=== PATIENT | female | born 1975 | race African-American/Black ===

== ENCOUNTER 2017-02-02 09:46 | Observation (INO) | payer SELFPAY ==
[~2017-02-02] VITALS: Ht 170.2 cm; Wt 62.0 kg
[~2017-02-02 09:46] MED LIST: FERR324T4 PO
[2017-02-02 09:50] VITALS: BP 135/90; PULSE 78; RESP 16; TEMP 98.7; O2SAT 96
--- NOTE | 2017-02-02 10:13 | PD ---
HPI Chief Complaint: Seizure Time Seen by Provider: 09:58 Travel History International Travel<30 days: No Contact w/Intl Traveler<30days: No Traveled to known affect area: No History of Present Illness HPI 41yo F with chronic alcohol abuse presents to the ED with episode seizure today. Pt called [facility] initially because she wanted detox from alcohol and had a witnessed generalized tonic clonic seizure that lasted 15 seconds while en route on the ambulance. No head trauma. Pt is still shaking in her hands and diaphoretic. Pt is nauseous, and has epigastric abdominal pain and generalized weakness. Pt is AAOx3 now and has had alcohol withdrawal seizures before. Pt last drank yesterday and usually has 4-5 packs of beer. Denies any chest pain, sob, vomiting, focal weakness or numbness. Denies any drugs. Blood glucose 119. PFSH Past Medical History Arthritis: Yes Autoimmune Disease: No Blood Disorders: No Cancer: No Cardiovascular Problems: No Cerebrovascular Accident: No Diminished Hearing: No Endocrine: No Gastrointestinal Disorders: Yes GERD: Yes Genitourinary: Yes (chronic UTIs) Headaches: Yes Hiatal Hernia: Yes Immune Disorder: Yes (RA from childhood) Implanted Vascular Access Dvce: No Musculoskeletal: Yes (RA--dx'd at age 9 ) Neurologic: Yes (seizures r/t alcohol withdraw 2013, 09/2015) Psychiatric: No Reproductive: No Respiratory: No Migraines: No Seizures: Yes (2012) Sleep Apnea: No Ulcer: No Influenza Vaccination: Yes ?: Not : 3 Para: 3 Tubal Ligation: Yes Past Surgical History Abdominal Surgery: Yes (BARIATRIC 2008) Cardiac Surgery: No Ear Surgery: No Endocrine Surgery: No Eye Surgery: No Gynecologic Surgery: Yes (TUBAL LIGATION) Oral Surgery: No Thoracic Surgery: No Other Surgery: Yes Social History Alcohol Use: Yes (12 BEERS/DAY) Tobacco Use: No Substance Use: No Allergies-Medications (Allergen,Severity, Reaction): Coded Allergies: No Known Allergies (Verified , 02/02/17) Reported Meds & Prescriptions Reported Meds & Active Scripts Active No Active Prescriptions or Reported Medications Review of Systems Except as stated in HPI: all other systems reviewed are Neg Physical Exam Narrative GENERAL: 41yo F in moderate distress. SKIN: Warm and diaphoretic. HEAD: Atraumatic. Normocephalic. EYES: Pupils equal and round at 3mm bilaterally. EOMI. No scleral icterus. No injection or drainage. ENT: No nasal bleeding or discharge. Mucous membranes pink and moist. NECK: Trachea midline. No JVD. CARDIOVASCULAR: Regular rate and rhythm. No murmur appreciated. RESPIRATORY: No accessory muscle use. Clear to auscultation. Breath sounds equal bilaterally. GASTROINTESTINAL: Abdomen soft, +TTP epigastric region. No rebound tenderness or guarding. MUSCULOSKELETAL: No obvious deformities. No clubbing. No cyanosis. No edema. NEUROLOGICAL: Tremors in bilateral upper extremities and tongue fasciculation. PSYCHIATRIC: Appropriate mood and affect; insight and judgment normal. Data Data Last Documented VS Vital Signs Date Time Temp Pulse Resp B/P Pulse Ox O2 Delivery O2 Flow Rate FiO2 02/02/17 09:50 98.7 78 16 135/90 96 Orders Complete Blood Count With Diff (02/02/17 10:06) Comprehensive Metabolic Panel (02/02/17 10:06) Lipase (02/02/17 10:06) Sodium Chlor 0.9% 1000 Ml Inj (Ns 1000 M (02/02/17 10:15) Magnesium (Mg) (02/02/17 10:06) Lorazepam Inj (Ativan Inj) (02/02/17 10:15) Thiamine Inj (Thiamine Inj) (02/02/17 10:15) Ondansetron Inj (Zofran Inj) (02/02/17 10:15) Electrocardiogram (02/02/17 ) Enforcement Safety Officer / Telemetry OLIVIA.Q8H (02/02/17 10:13) Alcohol (Ethanol) (02/02/17 10:00) Pantoprazole Inj (Protonix Inj) (02/02/17 11:30) Labs Laboratory Tests Test 02/02/17 10:00 White Blood Count 5.0 TH/MM3 Red Blood Count 4.37 MIL/MM3 Hemoglobin 14.5 GM/DL Hematocrit 42.1 % Mean Corpuscular Volume 96.5 FL Mean Corpuscular Hemoglobin 33.1 PG Mean Corpuscular Hemoglobin 34.3 % Concent Red Cell Distribution Width 15.2 % Platelet Count 80 TH/MM3 Mean Platelet Volume 9.4 FL Neutrophils (%) (Auto) 65.6 % Lymphocytes (%) (Auto) 24.8 % Monocytes (%) (Auto) 8.8 % Eosinophils (%) (Auto) 0.4 % Basophils (%) (Auto) 0.4 % Neutrophils # (Auto) 3.2 TH/MM3 Lymphocytes # (Auto) 1.2 TH/MM3 Monocytes # (Auto) 0.4 TH/MM3 Eosinophils # (Auto) 0.0 TH/MM3 Basophils # (Auto) 0.0 TH/MM3 CBC Comment AUTO DIFF Differential Comment AUTO DIFF CONFIRMED Platelet Estimate LOW Platelet Morphology Comment NORMAL Target Cells 1+ Sodium Level 135 MEQ/L Potassium Level 3.8 MEQ/L Chloride Level 98 MEQ/L Carbon Dioxide Level 21.7 MEQ/L Anion Gap 15 MEQ/L Blood Urea Nitrogen 10 MG/DL Creatinine 1.00 MG/DL Estimat Glomerular Filtration 74 ML/MIN Rate Random Glucose 132 MG/DL Calcium Level 9.0 MG/DL Magnesium Level 2.0 MG/DL Total Bilirubin 0.8 MG/DL Aspartate Amino Transf 124 U/L (AST/SGOT) Alanine Aminotransferase 78 U/L (ALT/SGPT) Alkaline Phosphatase 116 U/L Total Protein 8.0 GM/DL Albumin 3.3 GM/DL Lipase 268 U/L Ethyl Alcohol Level LESS THAN 3 MG/DL [facility] Medical Decision Making Medical Screen Exam Complete: Yes Emergency Medical Condition: Yes Interpretation(s) EKG: NSR 69bpm. Biphasic T waves V2, V3. QTc 444ms. Differential Diagnosis Alcohol withdrawal seizure vs. electrolyte abnormality vs. pancreatitis vs. alcoholic gastritis Narrative Course 41yo F with chronic alcohol abuse here with what sounds like alcohol withdrawal seizure. No focal neurologic deficits. Pt has had documented alcohol withdrawal seizure in 2015 from our records. No signs of trauma except that she may have bit her tongue. No tongue laceration or active bleeding but there is redness left tongue. Pt is AAOx3 but tremulous so ativan 2mg IV given. VS stable. Labs reviewed, no leukocytosis. Glucose 132. Lipase 268. Blood alcohol negative. Elevated liver enzyme which is unchanged from baseline. Magnesium normal. Pt given NS IVF, thiamine and placed on psychological operations officer. Pt given protonix for epigastric abdominal pain that is likely gastritis. Pt reevaluated at bedside and is less tremulous. Pt will be admitted for observation for alcohol withdrawal seizure. Discussed with Dr. Diaz and accepted to his service. Diagnosis Primary Impression: Alcohol withdrawal seizure Qualified Code: F10.230 - Alcohol withdrawal seizure, uncomplicated Admitting Information Admitting Physician Requests: Observation Scripts No Active Prescriptions or Reported Meds Rose,Nicolasa DO Feb 02, 2017 10:13
[2017-02-02] MEDS ORDERED: THIAMINE INJ 100 MG in SODIUM CHLORIDE 0.9% INJ 100 ML IV ONE (10:15)
[2017-02-02] MEDS ORDERED: ONDANSETRON HCL 4 MG/2 ML VIAL IV PUSH ONE (10:15)
[2017-02-02] MEDS ORDERED: SODIUM CHLOR 0.9% 1000 ML INJ 1,000 ML IV ONE (10:15)
[2017-02-02] MEDS ORDERED: LORazepam 2 MG/ML VIAL IV PUSH ONE (10:15)
[2017-02-02 10:31] LABS: AUTOMATED NEUTROPHIL # 3.2 TH/MM3 (1.8-7.7); BASOPHIL % 0.4 % (0.0-2.0); EOSINOPHIL % 0.4 % (0.0-4.0); HEMATOCRIT 42.1 % (35.0-46.0); LYMPH % 24.8 % (9.0-44.0); LYMPHOCYTE # 1.2 TH/MM3 (1.0-4.8); MEAN CELL VOLUME 96.5 FL (80.0-100.0); MEAN CORPUSCULAR HEMOGLOBIN 33.1 PG (27.0-34.0); MEAN CORPUSCULAR HGB CONC 34.3 % (32.0-36.0); MONO % 8.8 % (0.0-8.0); NEUT % 65.6 % (16.0-70.0); PLATELET COUNT 80 TH/MM3 (150-450); RED BLOOD COUNT 4.37 MIL/MM3 (4.00-5.30); RED CELL DISTRIBUTION WIDTH 15.2 % (11.6-17.2)
[2017-02-02 10:33] LABS: HEMO FLAGS AUTO DIFF
[2017-02-02 10:50] LABS: ANION GAP 15 MEQ/L (5-15); AST (GOT) 124 U/L (15-37); BICARBONATE 21.7 MEQ/L (21.0-32.0); BLOOD UREA NITROGEN 10 MG/DL (7-18); CHLORIDE 98 MEQ/L (98-107); GLOMERULAR FILTRATION RATE 74 ML/MIN (>89); POTASSIUM 3.8 MEQ/L (3.5-5.1); SODIUM (NA) 135 MEQ/L (136-145)
[2017-02-02 10:53] LABS: ALKALINE PHOSPHATASE 116 U/L (45-117); ALT (GPT) 78 U/L (10-53); TOTAL BILIRUBIN ADULT 0.8 MG/DL (0.2-1.0)
[2017-02-02] MEDS ORDERED: PANTOPRAZOLE SODIUM 40 MG VIAL IV PUSH ONE (11:30)
[2017-02-02 11:33] LABS: PLATELET ESTIMATE SMEAR LOW (NORMAL); PLATELET MORPHOLOGY NORMAL (NORMAL); SCAN/DIFF AUTO DIFF CONFIRMED; TARGET CELLS 1+ (NORMAL)
--- NOTE | 2017-02-02 11:35 | HHI.HP ---
[facility] Primary Care Physician Admission Diagnosis Diagnoses: (1) Alcohol withdrawal seizure (2) Alcohol abuse (3) GERD (gastroesophageal reflux disease) (4) Microcytic anemia (5) IFG (impaired fasting glucose) Chief Complaint: Seizure withdrawal Travel History International Travel<30 Days: No Contact w/Intl Traveler <30 Da: No Traveled to Known Affected Are: No History of Present Illness 41-year-old female with a PMH of Alcohol Abuse and Alcohol Related Seizure who was brought into the ER by EMS 2/2 seizure and alcohol withdrawal type symptoms. She Drinks approx 4-5 beers/day.She states her last drink was yesterday 02/01/17. In the ED Alcohol level was 3. Vitals on arrival On , Temp 98 7, BP 135/90, HR 78, O2 sat 96% on RA. Abnormal labs include sodium 135 and blood glucose 132. During my exam, patient was alert and oriented although tremulous but not in a post ictal state. She denies any GI bleed, shortness of breath or chest pain. Review of Systems Other 12 systems reviewed and are negative except for the one mentioned in history of present illness Past Family Social History Past Medical History Alcohol Abuse and Alcohol Related Seizure Past Surgical History Tubal Ligation, Bariatric Surgery Allergies: Coded Allergies: No Known Allergies (Verified , 02/02/17) Family History No h/o DM or CAD. Social History Drinks 12 beers per day. Negative for tobacco or drugs. Physical Exam Vital Signs Vital Signs Date Time Temp Pulse Resp B/P Pulse Ox O2 Delivery O2 Flow Rate FiO2 02/02/17 09:50 98.7 78 16 135/90 96 Physical Exam GENERAL: This is a well-nourished, well-developed patient, in no apparent distress. SKIN: No rashes, ecchymoses or lesions. Cool and dry. HEAD: Atraumatic. Normocephalic. No temporal or scalp tenderness. EYES: Pupils equal round and reactive. Extraocular motions intact. No scleral icterus. No injection or drainage. ENT: Nose without bleeding, purulent drainage or septal hematoma. Throat without erythema, tonsillar hypertrophy or exudate. Uvula midline. Airway patent. NECK: Trachea midline. No JVD or lymphadenopathy. Supple, nontender, no meningeal signs. CARDIOVASCULAR: Regular rate and rhythm without murmurs, gallops, or rubs. RESPIRATORY: Clear to auscultation. Breath sounds equal bilaterally. No wheezes , rales, or rhonchi. GASTROINTESTINAL: Abdomen soft, non-tender, nondistended. No hepato-splenomegaly , or palpable masses. No guarding. MUSCULOSKELETAL: Extremities without clubbing, cyanosis, or edema. No joint tenderness, effusion, or edema noted. No calf tenderness. Negative Homans sign bilaterally. NEUROLOGICAL: Awake and alert. Cranial nerves II through XII intact. Motor and sensory grossly within normal limits. Five out of 5 muscle strength in all muscle groups. Normal speech. Laboratory Laboratory Tests Test 02/02/17 10:00 White Blood Count 5.0 Red Blood Count 4.37 Hemoglobin 14.5 Hematocrit 42.1 Mean Corpuscular Volume 96.5 Mean Corpuscular Hemoglobin 33.1 Mean Corpuscular Hemoglobin 34.3 Concent Red Cell Distribution Width 15.2 Platelet Count 80 Mean Platelet Volume 9.4 Neutrophils (%) (Auto) 65.6 Lymphocytes (%) (Auto) 24.8 Monocytes (%) (Auto) 8.8 Eosinophils (%) (Auto) 0.4 Basophils (%) (Auto) 0.4 Neutrophils # (Auto) 3.2 Lymphocytes # (Auto) 1.2 Monocytes # (Auto) 0.4 Eosinophils # (Auto) 0.0 Basophils # (Auto) 0.0 CBC Comment AUTO DIFF Differential Comment AUTO DIFF CONFIRMED Platelet Estimate LOW Platelet Morphology Comment NORMAL Target Cells 1+ Sodium Level 135 Potassium Level 3.8 Chloride Level 98 Carbon Dioxide Level 21.7 Anion Gap 15 Blood Urea Nitrogen 10 Creatinine 1.00 Estimat Glomerular Filtration 74 Rate Random Glucose 132 Calcium Level 9.0 Magnesium Level 2.0 Total Bilirubin 0.8 Aspartate Amino Transf 124 (AST/SGOT) Alanine Aminotransferase 78 (ALT/SGPT) Alkaline Phosphatase 116 Total Protein 8.0 Albumin 3.3 Lipase 268 Ethyl Alcohol Level LESS THAN 3 Result Diagram: 02/02/17 1000 02/02/17 1000 Assessment and Plan Problem List: (1) Alcohol withdrawal seizure ICD Code: F10.239 Status: Acute (2) Alcohol abuse ICD Code: F10.10 Status: Chronic (3) Hyponatremia ICD Code: E87.1 Status: Acute (4) IFG (impaired fasting glucose) ICD Code: R73.01 Status: Acute (5) Thrombocytopenia ICD Code: D69.6 Status: Acute (6) GERD (gastroesophageal reflux disease) ICD Code: K21.9 Status: Chronic Assessment and Plan 41-year-old female with 1-Alcohol withdrawal seizure: Alcohol cessation counseling provided, start rally pack, CIWA protocol, Librium when necessary for DTs and place seizure precaution. Will check EEG 2-Hyponatremia:2/2 beer potomania; monitor BMP 3-Thrombocytopenia: Secondary to liver related to alcohol disease, monitor CBC 4-Impaired fasting glucose: Check hemoglobin A1c and treat accordingly 5-GERD: PPI 6-DVT prophylaxis: Bilateral SCDs Code Status Full code Discussed Condition With Patient, ED physician Problem Qualifiers (1) Alcohol withdrawal seizure: Qualified Code: F10.230 - Alcohol withdrawal seizure, uncomplicated Michael Diaz MD Feb 02, 2017 11:35
[2017-02-02] MEDS ORDERED: ONDANSETRON HCL 4 MG/2 ML VIAL IV PRN (12:00)
[2017-02-02] MEDS ORDERED: LORazepam 1 MG TAB PO PRN (12:00)
[2017-02-02] MEDS ORDERED: LORazepam 2 MG TAB PO PRN (12:00)
[2017-02-02] MEDS ORDERED: FLUMAZENIL 0.5 MG/5 ML VIAL IV PUSH PRN (12:00)
[2017-02-02] MEDS ORDERED: LORazepam 2 MG/ML VIAL IV PUSH PRN ×4 (12:00)
[2017-02-02] MEDS ORDERED: cloNIDine HCL 0.1 MG TAB PO PRN (12:00)
[2017-02-02] MEDS ORDERED: SODIUM CHLORIDE 0.9% FLUSH 10 ML FLUSH IV FLUSH PRN (12:00)
[2017-02-02 13:57] VITALS: BP 124/88; PULSE 92; RESP 18; O2SAT 98
[2017-02-02 20:04] VITALS: BP 137/87; PULSE 99; RESP 18; TEMP 97.8; O2SAT 98
--- NOTE | 2017-02-02 20:20 | EKG ---
Date Performed: 02/02/2017 Time Performed: 10:41:54 PTAGE: 41 years EKG: ATRIAL FIBRILLATION BIPHASIC T WAVES, CONSIDER ISCHEMIA ABNORMAL RHYTHM ECG PREVIOUS TRACING : 09/25/2015 17.49 Compared to prior tracing no significant change DOCTOR: Brenden Royal Interpretating Date/Time 02/02/2017 20:19:58
[2017-02-02] MEDS: SODIUM CHLORIDE 0.9% FLUSH 10 ML FLUSH IV FLUSH SCH (23:01)
[2017-02-03 01:23] VITALS: BP 124/76; PULSE 86; RESP 18; TEMP 98.4; O2SAT 97
[2017-02-03 05:00] VITALS: PULSE 84
[2017-02-03 07:29] VITALS: BP 82/62; PULSE 89; RESP 18; TEMP 99.1; O2SAT 97
[2017-02-03 08:00] VITALS: PULSE 80
[2017-02-03] MEDS ORDERED: THIAMINE HCL 100 MG TAB PO SCH (09:00)
[2017-02-03] MEDS ORDERED: MULTIVITAMINS/MINERALS THERAPEUTIC TAB PO SCH (09:00)
[2017-02-03] MEDS ORDERED: PANTOPRAZOLE SOD 40 MG DELAYED RELEASE TAB PO SCH (09:00)
[2017-02-03] MEDS ORDERED: FOLIC ACID 1 MG TAB PO SCH (09:00)
[2017-02-03] MEDS ORDERED: VITA100T2 PO (09:05)
--- NOTE | 2017-02-03 09:08 | HHI.PR ---
Subjective Remarks Follow-up alcohol withdrawal seizure 02/03/17-patient seen and examined, no seizure activity since admission, alert and oriented 3. Objective Vitals Vital Signs Date Time Temp Pulse Resp B/P Pulse Ox O2 Delivery O2 Flow Rate FiO2 02/03/17 07:29 99.1 89 18 82/62 97 02/03/17 05:00 84 02/03/17 01:23 98.4 86 18 124/76 97 02/02/17 20:04 97.8 99 18 137/87 98 02/02/17 13:57 92 18 124/88 98 Room Air 02/02/17 09:50 98.7 78 16 135/90 96 I/O 02/02/17 02/02/17 02/02/17 02/03/17 02/03/17 02/03/17 07:00 15:00 23:00 07:00 15:00 23:00 Intake Total 600 ml Balance 600 ml Intake Oral 600 ml # Voids 2 Result Diagram: 02/02/17 1000 02/02/17 1000 Objective Remarks GENERAL: NAD SKIN: Warm and dry. HEAD: Normocephalic. EYES: No scleral icterus. No injection or drainage. NECK: Supple, trachea midline. No JVD or lymphadenopathy. CARDIOVASCULAR: Regular rate and rhythm without murmurs, gallops, or rubs. RESPIRATORY: Breath sounds equal bilaterally. No accessory muscle use. GASTROINTESTINAL: Abdomen soft, non-tender, nondistended. MUSCULOSKELETAL: No cyanosis, or edema. BACK: Nontender without obvious deformity. No CVA tenderness. A/P Problem List: (1) Alcohol withdrawal seizure ICD Code: F10.239 Status: Acute (2) Alcohol abuse ICD Code: F10.10 Status: Chronic (3) Hyponatremia ICD Code: E87.1 Status: Acute (4) IFG (impaired fasting glucose) ICD Code: R73.01 Status: Acute (5) Thrombocytopenia ICD Code: D69.6 Status: Acute (6) GERD (gastroesophageal reflux disease) ICD Code: K21.9 Status: Chronic Assessment and Plan 41-year-old female with 1-Alcohol withdrawal seizure: Alcohol cessation counseling provided, continue rally pack, CIWA protocol, Librium when necessary for DTs and place seizure precaution. EEG pending 2-Hyponatremia:2/2 beer potomania; monitor BMP 3-Thrombocytopenia: Secondary to liver related to alcohol disease, monitor CBC 4-Impaired fasting glucose: hemoglobin A1c pending and treat accordingly 5-GERD: PPI 6-DVT prophylaxis: Bilateral SCDs Discharge Planning Discharge patient to home Condition on discharge: Improved Regular Diet as tolerated Ad Reyna activity Rx written:thiamine 1mg daily Follow-up with primary care physician in 1 week Problem Qualifiers (1) Alcohol withdrawal seizure: Qualified Code: F10.230 - Alcohol withdrawal seizure, uncomplicated Michael Diaz MD Feb 03, 2017 09:08
[2017-02-03] MEDS: SODIUM CHLORIDE 0.9% FLUSH 10 ML FLUSH IV FLUSH SCH (10:49)
[2017-02-03 11:33] VITALS: BP 104/81; PULSE 114; RESP 23; TEMP 98.9; O2SAT 100
[2017-02-03 16:10] LABS: HEMOGLOBIN A1a 1.3 %; HEMOGLOBIN A1b 1.3 %; HEMOGLOBIN Ao 85.1 %; HEMOGLOBIN LA1C 2.3 %; HEMOGLOBIN P3 3.5 %
== END 2017-02-03 14:27 | disposition home or self-care (01) ==
LOC: NEPE 09:46 → NEDA 11:59 → NEPGCP 19:35
PROVIDERS: ADMIT Hospitalist; ATTEND Hospitalist
DX: F10.239 Alcohol dependence with withdrawal, unspecified (principal); M19.90 Unspecified osteoarthritis, unspecified site; K21.9 Gastro-esophageal reflux disease without esophagitis; K44.9 Diaphragmatic hernia without obstruction or gangrene; R51 Headache; R74.8 Abnormal levels of other serum enzymes; K29.70 Gastritis, unspecified, without bleeding; D50.9 Iron deficiency anemia, unspecified; R73.01 Impaired fasting glucose; Y90.0 Blood alcohol level of less than 20 mg/100 ml; E87.1 Hypo-osmolality and hyponatremia; D69.6 Thrombocytopenia, unspecified; I48.91 Unspecified atrial fibrillation
CPT/HCPCS: 80053; 80307; 82948; 83036; 83690; 83735; 85025; 93005; 96361; 96365; 96375; 99285; C9113; G0378; J2060; J2405; J3411; J7030

== ENCOUNTER 2017-10-05 13:04 | Inpatient (IN) | payer OTHER ==
[~2017-10-05] VITALS: Ht 170.2 cm; Wt 78.1 kg
[2017-10-05 08:00] VITALS: PULSE 77
[~2017-10-05 13:04] MED LIST changes: -FERR324T4 PO; +VITA100T2 PO
[2017-10-05 13:13] VITALS: BP 110/76; PULSE 100; RESP 18; O2SAT 98
[2017-10-05 13:35] VITALS: BP 103/71; PULSE 103; RESP 18; TEMP 98.6; O2SAT 98
[2017-10-05 15:22] LABS: BICARBONATE 28.7 MEQ/L (21.0-32.0)
[2017-10-05 15:23] LABS: POTASSIUM 6.1 MEQ/L (3.5-5.1)
[2017-10-05] MEDS ORDERED: SODIUM CHLOR 0.9% 1000 ML INJ 1,000 ML IV ONE (15:46)
[2017-10-05] MEDS ORDERED: THIAMINE INJ 100 MG in SODIUM CHLORIDE 0.9% INJ 100 ML IV ONE (16:00)
[2017-10-05] MEDS ORDERED: SODIUM CHLORIDE 0.9% FLUSH 10 ML FLUSH IVF PRN (16:00)
--- NOTE | 2017-10-05 16:46 | RADRPT ---
EXAM DATE/TIME: 10/05/2017 16:28 [facility] COMPARISON: No previous studies available for comparison. INDICATIONS : Head pain due to seizure. RADIATION DOSE: 34.85 CTDIvol (mGy) MEDICAL HISTORY : Seizures. SURGICAL HISTORY : Tubal ligation. ENCOUNTER: Initial ACUITY: 1 day PAIN SCALE: 7/10 LOCATION: Bilateral cranial TECHNIQUE: Multiple contiguous axial images were obtained of the head. Using automated exposure control and adj ustment of the mA and/or kV according to patient size, radiation dose was kept as low as reasonably a chievable to obtain optimal diagnostic quality images. DICOM format image data is available electro nically for review and comparison. FINDINGS: CEREBRUM: The ventricles are normal for age. No evidence of midline shift, mass lesion, hemorrhage or acute in farction. No extra-axial fluid collections are seen. POSTERIOR FOSSA: The cerebellum and brainstem are intact. The 4th ventricle is midline. The cerebellopontine angle i s unremarkable. EXTRACRANIAL: The visualized portion of the orbits is intact. Small right frontotemporal soft tissue scalp hematoma . SKULL: The calvaria is intact. No evidence of skull fracture. CONCLUSION: 1. No acute intracranial abnormality. Johan Artis MD on October 05, 2017 at 16:42 Board Certified Radiologist. This report was verified electronically.
[2017-10-05] MEDS ORDERED: LORazepam 2 MG/ML VIAL IV PUSH ONE (17:00)
--- NOTE | 2017-10-05 17:00 | PD ---
HPI Chief Complaint: Seizure Time Seen by Provider: 16:36 Travel History International Travel<30 days: No Contact w/Intl Traveler<30days: No Traveled to known affect area: No History of Present Illness HPI 43-year-old female with history of alcohol dependency presents to the emergency department for evaluation of a witnessed seizure. Patient states that she has had seizures in the past when she has not drink alcohol. Patient's last drink was 3 days ago on Tuesday. During seizure, she struck her head. Initially she was postictal upon arrival. She did bite her tongue. There is no incontinence. At this time patient reports no significant pain. She tells me she used to be on medication for seizures but does not know what it is and has not taken it for some extended amount of time. PFSH Past Medical History Arthritis: Yes Autoimmune Disease: No Blood Disorders: No Cancer: No Cardiovascular Problems: No Cerebrovascular Accident: No Diminished Hearing: No Endocrine: No Gastrointestinal Disorders: Yes GERD: Yes Genitourinary: Yes (chronic UTIs) Headaches: Yes Hiatal Hernia: Yes Immune Disorder: Yes (RA from childhood) Implanted Vascular Access Dvce: No Musculoskeletal: Yes (RA--dx'd at age 9 ) Neurologic: Yes (seizures r/t alcohol withdraw 2013, 09/2015) Psychiatric: No Reproductive: No Respiratory: No Migraines: No Seizures: Yes (2012) Sleep Apnea: No Ulcer: No : 3 Para: 3 Tubal Ligation: Yes Past Surgical History Abdominal Surgery: Yes (BARIATRIC 2008) Cardiac Surgery: No Ear Surgery: No Endocrine Surgery: No Eye Surgery: No Gynecologic Surgery: Yes (TUBAL LIGATION) Oral Surgery: No Thoracic Surgery: No Other Surgery: Yes Social History Alcohol Use: Yes (12 BEERS/DAY) Tobacco Use: No Substance Use: No Allergies-Medications (Allergen,Severity, Reaction): Coded Allergies: No Known Allergies (Verified , 02/02/17) Reported Meds & Prescriptions Reported Meds & Active Scripts Active Review of Systems Except as stated in HPI: all other systems reviewed are Neg Physical Exam Narrative GENERAL: Thin female patient, tremulous, sitting up in bed, in no acute distress. SKIN: Focused skin assessment warm/dry. HEAD: Patient's right aspect of her superior lip is swollen. Normocephalic. EYES: Pupils equal and round. No scleral icterus. No injection or drainage. ENT: No nasal bleeding or discharge. Mucous membranes pink and moist. Patient' s tongue is also bitten on the right. Piercing is in place. DENTAL: No loose or chipped teeth. No malocclusion. NECK: Trachea midline. No JVD. CARDIOVASCULAR: Tachycardic rate and rhythm. No murmur appreciated. RESPIRATORY: No accessory muscle use. Clear to auscultation. Breath sounds equal bilaterally. GASTROINTESTINAL: Abdomen soft, non-tender, nondistended. Hepatic and splenic margins not palpable. MUSCULOSKELETAL: No obvious deformities. No clubbing. No cyanosis. No edema. NEUROLOGICAL: Awake and alert. No obvious cranial nerve deficits. Motor grossly within normal limits. Normal speech. Data Data Last Documented VS Vital Signs Date Time Temp Pulse Resp B/P (MAP) Pulse Ox O2 Delivery O2 Flow Rate FiO2 10/05/17 13:35 98.6 103 18 103/71 (82) 98 Room Air Orders Orders Blood Glucose (10/05/17 13:47) Oximetry (10/05/17 13:47) Iv Access Insert/Monitor (10/05/17 13:47) Ecg Monitoring (10/05/17 13:47) Oxygen Administration (10/05/17 13:47) Basic Metabolic Panel (Bmp) (10/05/17 13:47) Complete Blood Count With Diff (10/05/17 15:46) Alcohol (Ethanol) (10/05/17 15:46) Electrocardiogram (10/05/17 ) Ct Brain W/O Iv Contrast(Rout) (10/05/17 ) Sodium Chlor 0.9% 1000 Ml Inj (Ns 1000 M (10/05/17 15:46) Sodium Chloride 0.9% Flush (Ns Flush) (10/05/17 16:00) Thiamine Inj (Thiamine Inj) (10/05/17 16:00) Basic Metabolic Panel (Bmp) (10/05/17 16:53) Lorazepam Inj (Ativan Inj) (10/05/17 17:00) Labs Laboratory Tests Test 10/05/17 14:35 Blood Urea Nitrogen 10 MG/DL Creatinine 0.70 MG/DL Random Glucose 106 MG/DL Calcium Level 8.4 MG/DL Sodium Level 136 MEQ/L Potassium Level 6.1 MEQ/L Chloride Level 102 MEQ/L Carbon Dioxide Level 28.7 MEQ/L Anion Gap 5 MEQ/L Estimat Glomerular Filtration Rate 111 ML/MIN MDM Medical Decision Making Medical Screen Exam Complete: Yes Emergency Medical Condition: Yes Medical Record Reviewed: Yes Differential Diagnosis Alcohol withdrawal versus seizure disorder versus electro-lyte abnormality versus head injury Narrative Course 42-year-old female presents to the emergency department for evaluation following a seizure. Based on history, this is likely a withdrawal seizure. Patient is given Ativan here in emergency department she is quite tremulous. Lab work is sent. Slight loss is noted with hyperkalemia 6.1. CBC needs to be redrawn.. I'll add a BMP to be redrawn as well to recheck the potassium.. CT imaging of the brain is without acute intracranial abnormality. A call has been placed to hospitalist for admission Diagnosis Primary Impression: Alcohol withdrawal seizure Qualified Codes: F10.239 - Alcohol dependence with withdrawal, unspecified; R56.9 - Unspecified convulsions Condition: Stable Aye Reynolds Oct 05, 2017 16:59
[2017-10-05] MEDS ORDERED: SODIUM CHLORIDE 0.9% FLUSH 10 ML FLUSH IV FLUSH PRN ×2 (17:15)
[2017-10-05] MEDS ORDERED: LORazepam 2 MG/ML VIAL IV PUSH PRN ×4 (17:15)
[2017-10-05] MEDS ORDERED: FLUMAZENIL 0.5 MG/5 ML VIAL IV PUSH PRN (17:15)
[2017-10-05] MEDS ORDERED: NALOXONE HCL 0.4 MG/ML AMP IV PUSH PRN (17:15)
[2017-10-05 17:35] LABS: AUTOMATED NEUTROPHIL # 4.6 TH/MM3 (1.8-7.7); BASOPHIL % 0.2 % (0.0-2.0); EOSINOPHIL % 0.2 % (0.0-4.0); HEMATOCRIT 38.7 % (35.0-46.0); LYMPH % 13.4 % (9.0-44.0); LYMPHOCYTE # 0.8 TH/MM3 (1.0-4.8); MEAN CELL VOLUME 93.5 FL (80.0-100.0); MEAN CORPUSCULAR HEMOGLOBIN 31.4 PG (27.0-34.0); MEAN CORPUSCULAR HGB CONC 33.5 % (32.0-36.0); NEUT % 78.2 % (16.0-70.0); PLATELET COUNT 65 TH/MM3 (150-450); RED BLOOD COUNT 4.14 MIL/MM3 (4.00-5.30); RED CELL DISTRIBUTION WIDTH 15.8 % (11.6-17.2); WHITE BLOOD COUNT 5.9 TH/MM3 (4.0-11.0)
[2017-10-05] MEDS ORDERED: THIAMINE HCL 100 MG TAB PO ONE (17:45)
[2017-10-05 17:47] LABS: HEMO FLAGS AUTO DIFF
[2017-10-05 17:50] LABS: BICARBONATE 24.5 MEQ/L (21.0-32.0); POTASSIUM 3.7 MEQ/L (3.5-5.1)
[2017-10-05] MEDS ORDERED: chlordiazePOXIDE 25 MG CAP PO SCH (18:00)
[2017-10-05 18:21] LABS: PLATELET ESTIMATE SMEAR LOW (NORMAL); PLATELET MORPHOLOGY ENLARGED (NORMAL); SCAN/DIFF AUTO DIFF CONFIRMED
[2017-10-05 18:57] VITALS: BP 109/72; PULSE 80; RESP 18; TEMP 99.4; O2SAT 99
[2017-10-05] MEDS: LORazepam 1 MG TAB PO PRN (20:44)
[2017-10-05] MEDS ORDERED: SODIUM CHLORIDE 0.9% FLUSH 10 ML FLUSH IV FLUSH SCH (21:00)
[2017-10-05] MEDS: SODIUM CHLOR 0.9% 1000 ML INJ 1,000 ML IV SCH (21:15)
[2017-10-05] MEDS: SODIUM CHLORIDE 0.9% FLUSH 10 ML FLUSH IV FLUSH SCH (21:16)
[2017-10-05 21:33] VITALS: BP 126/85; PULSE 92; RESP 18; TEMP 98.8; O2SAT 98
[2017-10-05] MEDS ORDERED: MORPHINE SULFATE 2 MG/ML INJ IV PUSH ONE (22:15)
--- NOTE | 2017-10-05 22:28 | HHI.HP ---
[facility] Primary Care Physician No Primary Care Physician Admission Diagnosis ALCOHOL WITHDRAWAL SEIZURES Diagnoses: Travel History International Travel<30 Days: No Contact w/Intl Traveler <30 Da: No Traveled to Known Affected Are: No History of Present Illness 42-year-old female with a past medical history significant for alcohol abuse presents to the emergency department after having a seizure that was witnessed by her fianc around 9:00 this morning. The patient last had alcohol on Tuesday. She reports drinking approximately 2-4 pints daily. She has a history of alcohol withdrawal seizures in the past. The patient sustained trauma to the right side of her face and has a swollen right upper lip which occurred during her seizure. The patient currently complains of right-sided face pain. Head CT negative for acute intracranial abnormality. Review of Systems Denies fever or chills Denies blurry vision, otorrhea, rhinorrhea Denies sore throat and cough No chest pain, palpitations, shortness of breath No abdominal pain Denies constipation/diarrhea/nausea/vomiting Denies muscle pain/weakness No rashes Past Family Social History Past Medical History Alcohol abuse Past Surgical History Bilateral tubal ligation Reported Medications Reported Meds & Active Scripts Active Allergies: Coded Allergies: No Known Allergies (Verified , 02/02/17) Family History Father with diabetes mellitus. Social History Never smoker. Drinks approximately 2-4 pints of beer daily. Denies marijuana, illicit drugs. Physical Exam Vital Signs Vital Signs Date Time Temp Pulse Resp B/P (MAP) Pulse Ox O2 Delivery O2 Flow Rate FiO2 10/05/17 21:33 98.8 92 18 126/85 (99) 98 10/05/17 18:57 99.4 80 18 109/72 (84) 99 10/05/17 13:35 98.6 103 18 103/71 (82) 98 Room Air 10/05/17 13:13 100 18 110/76 (87) 98 10/05/17 08:00 77 Physical Exam GENERAL: female lying in bed SKIN: No rashes, ecchymoses or lesions. Cool and dry. HEAD: Normocephalic. No temporal or scalp tenderness. Right upper lip and right cheek swollen with small hemostatic laceration to the right upper lip. EYES: Pupils equal round and reactive. Extraocular motions intact. No scleral icterus. No injection or drainage. ENT: Nose without bleeding, purulent drainage or septal hematoma. Throat without erythema, tonsillar hypertrophy or exudate. Uvula midline. Airway patent. NECK: Trachea midline. No JVD or lymphadenopathy. Supple, nontender, no meningeal signs. CARDIOVASCULAR: Regular rate and rhythm without murmurs, gallops, or rubs. RESPIRATORY: Clear to auscultation. Breath sounds equal bilaterally. No wheezes , rales, or rhonchi. GASTROINTESTINAL: Abdomen soft, non-tender, nondistended. No hepato-splenomegaly , or palpable masses. No guarding. MUSCULOSKELETAL: Extremities without clubbing, cyanosis, or edema. No joint tenderness, effusion, or edema noted. No calf tenderness. NEUROLOGICAL: Awake and alert. Cranial nerves II through XII intact. Motor and sensory grossly within normal limits. Normal speech. Laboratory Laboratory Tests Test 10/05/17 14:35 10/05/17 17:00 Blood Urea Nitrogen 10 9 Creatinine 0.70 0.65 Random Glucose 106 171 Calcium Level 8.4 8.1 Sodium Level 136 135 Potassium Level 6.1 3.7 Chloride Level 102 104 Carbon Dioxide Level 28.7 24.5 Anion Gap 5 7 Estimat Glomerular Filtration Rate 111 121 White Blood Count 5.9 Red Blood Count 4.14 Hemoglobin 13.0 Hematocrit 38.7 Mean Corpuscular Volume 93.5 Mean Corpuscular Hemoglobin 31.4 Mean Corpuscular Hemoglobin Concent 33.5 Red Cell Distribution Width 15.8 Platelet Count 65 Mean Platelet Volume 8.6 Neutrophils (%) (Auto) 78.2 Lymphocytes (%) (Auto) 13.4 Monocytes (%) (Auto) 8.0 Eosinophils (%) (Auto) 0.2 Basophils (%) (Auto) 0.2 Neutrophils # (Auto) 4.6 Lymphocytes # (Auto) 0.8 Monocytes # (Auto) 0.5 Eosinophils # (Auto) 0.0 Basophils # (Auto) 0.0 CBC Comment AUTO DIFF Differential Comment AUTO DIFF CONFIRMED Platelet Estimate LOW Platelet Morphology Comment ENLARGED Ethyl Alcohol Level LESS THAN 3 Result Diagram: 10/05/17 1700 10/05/17 170 Caprini VTE Risk Assessment Caprini VTE Risk Assessment: No/Low Risk (score <= 1) Caprini Risk Assessment Model Point Value = 1 Point Value = 2 Point Value = 3 Point Value = 5 Age 41-60 Minor surgery BMI > 25 kg/m2 Swollen legs Varicose veins or History of unexplained or recurrent spontaneous Oral contraceptives or hormone replacement Sepsis (< 1 month) Serious lung disease, including pneumonia (< 1 month) Abnormal pulmonary function Acute myocardial infarction Congestive heart failure (< 1 month) History of inflammatory bowel disease Medical patient at bed rest Age 61-74 Arthroscopic surgery Major open surgery (> 45 min) Laparoscopic surgery (> 45 min) Malignancy Confined to bed (> 72 hours) Immobilizing plaster cast Central venous access Age >= 75 History of VTE Family history of VTE Factor V Leiden Prothrombin [id number] Lupus anticoagulant Anticardiolipin antibodies Elevated serum homocysteine Heparin-induced thrombocytopenia Other congenital or acquired thrombophilia Stroke (< 1 month) Elective arthroplasty Hip, pelvis, or leg fracture Acute spinal cord injury (< 1 month) Prophylaxis Regimen Total Risk Factor Score Risk Level Prophylaxis Regimen 0-1 Low Early ambulation 2 Moderate Order ONE of the following: *Sequential Compression Device (SCD) *Heparin 5000 units SQ BID 3-4 Higher Order ONE of the following medications: *Heparin 5000 units SQ TID *Enoxaparin/Lovenox 40 mg SQ daily (WT < 150 kg, CrCl > 30 mL/min) *Enoxaparin/Lovenox 30 mg SQ daily (WT < 150 kg, CrCl > 10-29 mL/min) *Enoxaparin/Lovenox 30 mg SQ BID (WT < 150 kg, CrCl > 30 mL/min) AND/OR *Sequential Compression Device (SCD) 5 or more Highest Order ONE of the following medications: *Heparin 5000 units SQ TID (Preferred with Epidurals) *Enoxaparin/Lovenox 40 mg SQ daily (WT < 150 kg, CrCl > 30 mL/min) *Enoxaparin/Lovenox 30 mg SQ daily (WT < 150 kg, CrCl > 10-29 mL/min) *Enoxaparin/Lovenox 30 mg SQ BID (WT < 150 kg, CrCl > 30 mL/min) AND *Sequential Compression Device (SCD) Assessment and Plan Assessment and Plan Assessment/plan: 1. Seizure Likely secondary to alcohol withdrawal - patient with h/o withdrawal seizures and no EtOH since Tuesday Head CT negative EEG pending Seizure precautions 2. Alcohol abuse Case management consult to assist CIWA protocol Thiamine/folate/multivitamin Cessation counseling provided FEN Heart healthy diet Electrolytes: monitor and replete prn SCDs Physician Certification 2 Midnight Certification Type: Admission for Inpatient Services Order for Inpatient Services The services are ordered in accordance with Medicare regulations or non- Medicare payer requirements, as applicable. In the case of services not specified as inpatient-only, they are appropriately provided as inpatient services in accordance with the 2-midnight benchmark. Estimated LOS (days): 2 2 days is the estimated time the patient will need to remain in the hospital, assuming treatment plan goals are met and no additional complications. Post-Hospital Plan: Not yet determined Michaela Naranjo MD Oct 05, 2017 22:28
[2017-10-06] VITALS (8 sets, daily range): BP systolic 106–130; BP diastolic 74–87; PULSE 69–91; RESP 16–20; TEMP 98.5–99.2; O2SAT 95–99
[2017-10-06] MEDS: LORazepam 2 MG TAB PO PRN ×2 (00:32→09:37)
[2017-10-06] MEDS: PANTOPRAZOLE SODIUM 40 MG VIAL IV PUSH SCH ×2 (00:33→22:39)
[2017-10-06] MEDS: SODIUM CHLOR 0.9% 1000 ML INJ 1,000 ML IV SCH ×3 (03:12→22:40)
[2017-10-06 08:08] LABS: AUTOMATED NEUTROPHIL # 2.3 TH/MM3 (1.8-7.7); BASOPHIL % 0.3 % (0.0-2.0); EOSINOPHIL % 1.1 % (0.0-4.0); HEMATOCRIT 34.4 % (35.0-46.0); LYMPH % 27.1 % (9.0-44.0); LYMPHOCYTE # 1.1 TH/MM3 (1.0-4.8); MEAN CELL VOLUME 94.7 FL (80.0-100.0); MEAN CORPUSCULAR HEMOGLOBIN 31.5 PG (27.0-34.0); MEAN CORPUSCULAR HGB CONC 33.2 % (32.0-36.0); MONO % 15.4 % (0.0-8.0); NEUT % 56.1 % (16.0-70.0); PLATELET COUNT 69 TH/MM3 (150-450); RED BLOOD COUNT 3.63 MIL/MM3 (4.00-5.30); RED CELL DISTRIBUTION WIDTH 15.7 % (11.6-17.2)
[2017-10-06 08:12] LABS: HEMO FLAGS AUTO DIFF
[2017-10-06 08:41] LABS: BICARBONATE 25.3 MEQ/L (21.0-32.0); POTASSIUM 3.5 MEQ/L (3.5-5.1)
[2017-10-06] MEDS: SODIUM CHLORIDE 0.9% FLUSH 10 ML FLUSH IV FLUSH SCH ×2 (09:00→22:39)
[2017-10-06 09:03] LABS: PLATELET ESTIMATE SMEAR LOW (NORMAL); PLATELET MORPHOLOGY NORMAL (NORMAL); SCAN/DIFF AUTO DIFF CONFIRMED
[2017-10-06] MEDS: FOLIC ACID 1 MG TAB PO SCH (09:37)
[2017-10-06] MEDS: MULTIVITAMIN TAB PO SCH (09:37)
[2017-10-06] MEDS: THIAMINE HCL 100 MG TAB PO SCH (09:37)
--- NOTE | 2017-10-06 13:52 | HHI.PR ---
Subjective Remarks Patient says she is feeling all right today. She says she will stop drinking. She denies any chest pain or shortness of breath. She reports chronic pain all over in all her muscles and bones. Objective Vital Signs Date Time Temp Pulse Resp B/P (MAP) Pulse Ox O2 Delivery O2 Flow Rate FiO2 10/06/17 12:22 98.7 69 20 127/87 (100) 98 10/06/17 08:00 99.2 80 20 129/84 (99) 98 10/06/17 05:34 98.5 88 18 130/83 (99) 99 10/06/17 00:41 98.9 80 18 106/74 (85) 99 10/05/17 21:33 98.8 92 18 126/85 (99) 98 10/05/17 18:57 99.4 80 18 109/72 (84) 99 I/O 10/05/17 10/05/17 10/05/17 10/06/17 10/06/17 10/06/17 07:00 15:00 23:00 07:00 15:00 23:00 Intake Total 1100 ml Balance 1100 ml Intake IV Total 1100 ml # Voids 3 # Bowel Movements 0 Result Diagram: 10/06/17 0700 10/06/17 0750 Objective Remarks GENERAL: Patient sitting up in bed. Appears comfortable. alert, Oriented 3. SKIN: Warm and dry. HEAD: Normocephalic. EYES: No scleral icterus. No injection or drainage. NECK: Supple, trachea midline. No JVD. CARDIOVASCULAR: Regular rate and rhythm without murmurs, gallops, or rubs. RESPIRATORY: Breath sounds equal bilaterally. No accessory muscle use. GASTROINTESTINAL: Abdomen soft, non-tender, nondistended. MUSCULOSKELETAL: No cyanosis, or edema. BACK: Nontender without obvious deformity. No CVA tenderness. A/P Assessment and Plan Assessment/plan: //Seizure Likely secondary to alcohol withdrawal - patient with h/o withdrawal seizures and no EtOH since Tuesday Head CT negative EEG pending Seizure precautions = Follow up EEG. //Chronic diffuse pain. -Sounds like this is worsening, however likely secondary to being off alcohol. We'll check CK, LFTs, vitamin D for possible osteomalacia given his low in the past. //Alcohol abuse Case management consult to assist CIWA protocol Thiamine/folate/multivitamin Cessation counseling provided = Provide rehabilitation resources. Librium taper. //Thrombocytopenia. Platelets in the 60s. Likely secondary to chronic alcohol abuse, possible cirrhosis. Appears stable. No signs of bleeding. Follow-up primary care. FEN Heart healthy diet Electrolytes: monitor and replete prn SCDs Discharge Planning Patient will need primary care provider Pending EEG. Alcohol rehabilitation resources. Chino Orr MD Oct 06, 2017 13:52
[2017-10-06] MEDS ORDERED: CHLO10CA5 PO (13:54)
[2017-10-06 14:45] LABS: INDIRECT BILIRUBIN 0.3 MG/DL (0.0-0.8); TOTAL BILIRUBIN ADULT 0.5 MG/DL (0.2-1.0)
[2017-10-06] MEDS ORDERED: CHOLECALCIFEROL (VIT D3) 5000 UNIT CAP PO ONE (19:00)
[2017-10-06] MEDS: LORazepam 1 MG TAB PO PRN (22:46)
[2017-10-07 00:17] VITALS: BP 110/71; PULSE 75; RESP 18; TEMP 98.3; O2SAT 98
[2017-10-07 06:13] VITALS: BP 114/78; PULSE 69; RESP 16; TEMP 98.7; O2SAT 96
[2017-10-07 08:30] VITALS: BP 122/74; PULSE 67; RESP 20; TEMP 98.9; O2SAT 98
[2017-10-07] MEDS: SODIUM CHLORIDE 0.9% FLUSH 10 ML FLUSH IV FLUSH SCH (08:34)
[2017-10-07] MEDS: FOLIC ACID 1 MG TAB PO SCH (08:36)
[2017-10-07] MEDS: MULTIVITAMIN TAB PO SCH (08:36)
[2017-10-07] MEDS: THIAMINE HCL 100 MG TAB PO SCH (08:36)
[2017-10-07] MEDS ORDERED: CHOLECALCIFEROL (VIT D3) 5000 UNIT CAP PO SCH (09:00)
[2017-10-07] MEDS: SODIUM CHLOR 0.9% 1000 ML INJ 1,000 ML IV SCH (09:08)
--- NOTE | 2017-10-07 11:38 | MG ---
cc: JAMES LOPEZ MD Lab No: [id number] Date: 10/06/2017 : 1975 Sex: F INDICATION A 42-year-old with history of seizure. DESCRIPTION 7-9 Hz posterior rhythm, 10-40 microvolts, frontal beta and theta frequencies. Good anterior-posterior gradient. Good EEG variability reactivity. Attenuation of background slowing with transition into drowsy state followed by stage II sleep with spindles. Reasonable driving with photic stimulation. Single lead EKG showing sinus rhythm. Mild to moderate intermittent frontal high-frequency artifact with eye artifact. INTERPRETATION Normal awake and sleep EEG. Clinical correlation. James Lopez MD MG/BT /7:17 AM /11:07 AM
[2017-10-07] MEDS ORDERED: CHOL5000 PO (11:48)
[2017-10-07 12:00] VITALS: BP 117/65; PULSE 78; RESP 20; TEMP 98.9; O2SAT 97
--- NOTE | 2017-10-07 16:31 | HHI.DS ---
Discharge Summary Admission Date Oct 05, 2017 at 17:15 Discharge Date: Oct 07, 2017 Admitting Diagnosis ALCOHOL WITHDRAWAL SEIZURES (1) Alcohol related seizure ICD Code: R56.9 - Unspecified convulsions Status: Resolved Procedures EEG. No invasive procedures. Brief History - From Admission 42-year-old female with a past medical history significant for alcohol abuse presents to the emergency department after having a seizure that was witnessed by her fianc around 9:00 this morning. The patient last had alcohol on Tuesday. She reports drinking approximately 2-4 pints daily. She has a history of alcohol withdrawal seizures in the past. The patient sustained trauma to the right side of her face and has a swollen right upper lip which occurred during her seizure. The patient currently complains of right-sided face pain. Head CT negative for acute intracranial abnormality. CBC/BMP: 10/06/17 0700 10/06/17 0750 Significant Findings Laboratory Tests Test 10/05/17 14:35 10/05/17 17:00 10/06/17 07:00 10/06/17 07:50 Calcium Level 8.4 MG/DL (8.5-10.1) 8.1 MG/DL (8.5-10.1) 7.9 MG/DL (8.5-10.1) Potassium Level 6.1 MEQ/L (3.5-5.1) Platelet Count 65 TH/MM3 (150-450) 69 TH/MM3 (150-450) Neutrophils (%) (Auto) 78.2 % (16.0-70.0) Lymphocytes # (Auto) 0.8 TH/MM3 (1.0-4.8) Platelet Estimate LOW (NORMAL) LOW (NORMAL) Platelet Morphology Comment ENLARGED (NORMAL) Random Glucose 171 MG/DL (74-106) 65 MG/DL (74-106) Sodium Level 135 MEQ/L (136-145) Red Blood Count 3.63 MIL/MM3 (4.00-5.30) Hemoglobin 11.4 GM/DL (11.6-15.3) Hematocrit 34.4 % (35.0-46.0) Monocytes (%) (Auto) 15.4 % (0.0-8.0) Aspartate Amino Transf (AST/SGOT) 85 U/L (15-37) Alanine Aminotransferase (ALT/SGPT) 68 U/L (10-53) Total Protein 6.3 GM/DL (6.4-8.2) Albumin 2.6 GM/DL (3.4-5.0) 25-Hydroxy Vitamin D Total 10.4 ng/ML (30-100) PE at Discharge GENERAL: patient walking around room. Appears comfortable. Alert and oriented 4. SKIN: Warm and dry. HEAD: Normocephalic. EYES: No scleral icterus. No injection or drainage. NECK: Supple, trachea midline. No JVD. CARDIOVASCULAR: Regular rate and rhythm without murmurs, gallops, or rubs. RESPIRATORY: Breath sounds equal bilaterally. No accessory muscle use. GASTROINTESTINAL: Abdomen soft, non-tender, nondistended. MUSCULOSKELETAL: No cyanosis, or edema. BACK: Nontender without obvious deformity. No CVA tenderness. Pt update on day of discharge Patient seen this morning around 10:30 AM. Walking around room without difficulty. Says she is feeling well. Says she feels like going home Hospital Course //Seizure Likely secondary to alcohol withdrawal - patient with h/o withdrawal seizures and no EtOH since Tuesday Head CT negative EEG pending Seizure precautions = EEG negative for seizure activity. Patient advised to avoid driving for 6 months, or until cleared by neurology. //Chronic diffuse pain. -Sounds like this is worsening, however likely secondary to being off alcohol. We'll check CK, LFTs, vitamin D for possible osteomalacia given his low in the past. //Vitamin D deficiency. Started on vitamin D replacement. //Alcohol abuse Case management consult to assist [place] protocol Thiamine/folate/multivitamin Cessation counseling provided = Provide rehabilitation resources. Librium taper. //Thrombocytopenia. Platelets in the 60s. Likely secondary to chronic alcohol abuse, possible cirrhosis. Appears stable. No signs of bleeding. Follow-up primary care. Pt Condition on Discharge: Good Discharge Disposition: Discharge Home Discharge Time: > 30 minutes Discharge Instructions DIET: Follow Instructions for: As Tolerated, No Restrictions Activities you can perform: Regular-No Restrictions Follow up Referrals: Appointment for Follow Up Drug/Alcohol Rehab - 1 Month with [facility] PCP Follow-up - 1 Week with [facility] Follow-up New Medications: Cholecalciferol (Vitamin D3) 5,000 Unit Cap 5000 UNITS PO DAILY for Nutritional Supplement, #30 CAP 0 Refills Chlordiazepoxide HCl (Chlordiazepoxide HCl) 10 Mg Capsule 10 MG PO TID for Alcohol Detox, #18 TAB Take THREE Times daily for 3 Days, then TWICE daily for 3 days, then ONCE a day for 3 Days. Chino Orr MD Oct 07, 2017 16:31
--- NOTE | 2017-10-07 23:56 | EKG ---
Date Performed: 10/05/2017 Time Performed: 16:14:42 PTAGE: 42 years EKG: Sinus rhythm NORMAL ECG PREVIOUS TRACING : 02/02/2017 10.41 Compared to the previous tracing, biphasic T waves anterior ly no longer noted DOCTOR: Brenden Royal Interpretating Date/Time 10/07/2017 23:55:24
== END 2017-10-07 13:35 | disposition home or self-care (01) | DRG 897 ==
LOC: NEPD 13:04 → NEDA 17:15 → N05A 18:40
PROVIDERS: ADMIT Internal Medicine; ATTEND Internal Medicine
DX: F10.239 Alcohol dependence with withdrawal, unspecified (principal); D69.6 Thrombocytopenia, unspecified; R56.9 Unspecified convulsions; E55.9 Vitamin D deficiency, unspecified; S01.511A Laceration without foreign body of lip, initial encounter; X58.XXXA Exposure to other specified factors, initial encounter; K21.9 Gastro-esophageal reflux disease without esophagitis
CPT/HCPCS: 70450; 80048; 80076; 80307; 82306; 82550; 85025; 93005; 95819; 96365; C9113; J2060; J2270; J3411; J7030

== ENCOUNTER 2018-01-15 19:42 | Inpatient (IN) | payer OTHER ==
[~2018-01-15] VITALS: Ht 167.6 cm; Wt 60.0 kg
[~2018-01-15 19:42] MED LIST changes: +CHLO10CA5 PO; +CHOL5000 PO; -VITA100T2 PO
[2018-01-15 19:51] VITALS: BP 137/84; PULSE 98; RESP 18; TEMP 98.5; O2SAT 99
[2018-01-15] MEDS ORDERED: SODIUM CHLORIDE 0.9% FLUSH 10 ML FLUSH IVF PRN (20:15)
[2018-01-15] MEDS ORDERED: LORazepam 2 MG/ML VIAL IVS ONE (20:15)
--- NOTE | 2018-01-15 20:30 | PD ---
HPI Chief Complaint: Seizure Time Seen by Provider: 20:06 Travel History International Travel<30 days: No Contact w/Intl Traveler<30days: No Traveled to known affect area: No History of Present Illness HPI Patient comes emergency department complaining of a seizure that occurred shortly prior to arrival. Patient reports she is trying to go cold turkey off of alcohol and she has had a history of alcohol withdrawal seizures in the past. Patient states she normally drinks about 6 beers a day last time was yesterday. Patient reports she had one beer today as she was trying to quit drinking. Patient's significant other reports that he walked out of the room briefly for a minute or 2 when he came back found her on the ground twitching and shaking. Patient complaining of a throbbing headache throughout her head as well as pain in her tongue from where she bit it. Patient has anything making symptoms better. Touching side of her face makes pain worse. Denies any chest pain, fevers, change in vision, dizziness, abdominal pain, or loss change in bowel or bladder. PFSH Past Medical History Arthritis: Yes Autoimmune Disease: No Blood Disorders: No Cancer: No Cardiovascular Problems: No Cerebrovascular Accident: No Diminished Hearing: No Endocrine: No Gastrointestinal Disorders: Yes (gastritis) GERD: Yes Genitourinary: Yes (chronic UTIs) Headaches: Yes Hiatal Hernia: Yes Immune Disorder: Yes (RA from childhood) Implanted Vascular Access Dvce: No Musculoskeletal: Yes (RA--dx'd at age 9 ) Neurologic: Yes (seizures r/t alcohol withdraw 2013, 09/2015) Psychiatric: No Reproductive: No Respiratory: No Migraines: No Seizures: Yes (2012) Sleep Apnea: No Ulcer: No Tetanus Vaccination: Unknown Influenza Vaccination: No ?: Not LMP: 12/29/2017 : 3 Para: 3 Tubal Ligation: Yes Past Surgical History Abdominal Surgery: Yes (BARIATRIC 2008) Cardiac Surgery: No Ear Surgery: No Endocrine Surgery: No Eye Surgery: No Gynecologic Surgery: Yes (TUBAL LIGATION) Oral Surgery: No Thoracic Surgery: No Other Surgery: Yes (BARIATRIC) Social History Alcohol Use: Yes (12 BEERS/DAY) Tobacco Use: No Substance Use: No Allergies-Medications (Allergen,Severity, Reaction): Coded Allergies: No Known Allergies (Verified Adverse Reaction, Unknown, 01/15/18) Reported Meds & Prescriptions Reported Meds & Active Scripts Active Review of Systems Except as stated in HPI: all other systems reviewed are Neg Physical Exam Narrative GENERAL: Well-developed, well nourished, in no acute distress, and non-ill appearing. SKIN: Focused skin assessment warm and dry. Ecchymosis noted left-sided tongue left lower lip, anterior tongue from what appears to be from where patient that her tongue during seizure activity. HEAD: Small tender hematoma noted right temporal lobe. Normocephalic. EYES: Pupils equal and round. EOMI. No scleral icterus. No injection or drainage. ENT: No nasal bleeding or discharge. Mucous membranes pink and moist. NECK: Trachea midline. No JVD. Supple. No nuclear rigidity. No tenderness or crepitus over midline of the cervical spine. CARDIOVASCULAR: Regular rate and rhythm. No murmur appreciated. RESPIRATORY: No accessory muscle use. No respiratory distress. Clear to auscultation. Breath sounds equal bilaterally. MUSCULOSKELETAL: No obvious deformities. No clubbing. No cyanosis. No edema. Full range of motion. NEUROLOGICAL: Awake and alert. No obvious cranial nerve deficits. Motor grossly within normal limits. Normal speech. PSYCHIATRIC: Appropriate mood and affect; insight and judgment normal. Data Data Last Documented VS Vital Signs Date Time Temp Pulse Resp B/P (MAP) Pulse Ox O2 Delivery O2 Flow Rate FiO2 01/15/18 20:34 16 99 Room Air 01/15/18 19:51 98.5 98 137/84 (101) Orders Orders Complete Blood Count With Diff (01/15/18 20:14) Basic Metabolic Panel (Bmp) (01/15/18 20:14) Alcohol (Ethanol) (01/15/18 20:14) Drug Screen, Random Urine (01/15/18 20:14) Electrocardiogram (01/15/18 ) Ct Brain W/O Iv Contrast(Rout) (01/15/18 ) Blood Glucose (01/15/18 20:14) Ecg Monitoring (01/15/18 20:14) Iv Access Insert/Monitor (01/15/18 20:14) Oximetry (01/15/18 20:14) Sodium Chloride 0.9% Flush (Ns Flush) (01/15/18 20:15) Lorazepam Inj (Ativan Inj) (01/15/18 20:15) Urinalysis - C+S If Indicated (01/15/18 20:14) Prothrombin Time / Inr (Pt) (01/15/18 20:14) Act Partial Throm Time (Ptt) (01/15/18 20:14) Ct Facial Bones W/O Iv Cont (01/15/18 ) Ct Cerv Spine W/O Contrast (01/15/18 ) Chest, Single Ap (01/15/18 ) Sodium Chlor 0.9% 1000 Ml Inj (Ns 1000 M (01/15/18 21:45) Admit Order (Ed Use Only) (01/15/18 ) Vital Signs (Adult) Q4H (01/15/18 22:15) Activity Bed Rest (01/15/18 22:15) Notify Dr: Other (01/15/18 22:15) Labs Laboratory Tests Test 01/15/18 20:25 White Blood Count 4.4 TH/MM3 Red Blood Count 4.67 MIL/MM3 Hemoglobin 14.1 GM/DL Hematocrit 41.8 % Mean Corpuscular Volume 89.5 FL Mean Corpuscular Hemoglobin 30.1 PG Mean Corpuscular Hemoglobin Concent 33.7 % Red Cell Distribution Width 18.7 % Platelet Count 62 TH/MM3 Mean Platelet Volume 9.0 FL Neutrophils (%) (Auto) 54.9 % Lymphocytes (%) (Auto) 36.0 % Monocytes (%) (Auto) 7.9 % Eosinophils (%) (Auto) 0.6 % Basophils (%) (Auto) 0.6 % Neutrophils # (Auto) 2.4 TH/MM3 Lymphocytes # (Auto) 1.6 TH/MM3 Monocytes # (Auto) 0.4 TH/MM3 Eosinophils # (Auto) 0.0 TH/MM3 Basophils # (Auto) 0.0 TH/MM3 CBC Comment AUTO DIFF Differential Comment AUTO DIFF CONFIRMED Platelet Estimate LOW Platelet Morphology Comment ENLARGED Target Cells 2+ Prothrombin Time 10.5 SEC Prothromb Time International Ratio 1.0 RATIO Activated Partial Thromboplast Time 25.2 SEC Blood Urea Nitrogen 7 MG/DL Creatinine 0.81 MG/DL Random Glucose 126 MG/DL Calcium Level 8.9 MG/DL Sodium Level 136 MEQ/L Potassium Level 4.1 MEQ/L Chloride Level 100 MEQ/L Carbon Dioxide Level 26.8 MEQ/L Anion Gap 9 MEQ/L Estimat Glomerular Filtration Rate 94 ML/MIN Ethyl Alcohol Level LESS THAN 3 MG/DL MDM Medical Decision Making Medical Screen Exam Complete: Yes Emergency Medical Condition: Yes Interpretation(s) EKG reviewed by Dr. Agarwal shows sinus rhythm ventricular rate of 88. No STEMI. Differential Diagnosis Alcohol withdrawal seizure, metabolic disturbance, intracranial hemorrhage, hematoma, contusion, closed head injury Narrative Course Patient was seen and examined. Initial laboratory radiological studies were ordered. IV was established and patient was placed on cardiac monitoring. Patient was given Ativan to help prevent further seizures. Patient given IV fluid. Discussed all findings and plan of care with patient with the exception of UA as patient has not been provided a specimen yet and is refusing catheterization. Patient is agreeable for admission. Discussed patient with Dr. Agarwal, who is in agreement plan of care and disposition. Discussed patient with hospitalist who is agreeable to admit the patient. Patient remained stable throughout ED course. Physician Communication Physician Communication [phone] Naranjo, hospitalist on-call, who is agreeable to admit the patient. Diagnosis Primary Impression: Alcohol withdrawal seizure Qualified Codes: F10.230 - Alcohol dependence with withdrawal, uncomplicated Additional Impressions: Closed head injury Qualified Codes: S09.90XA - Unspecified injury of head, initial encounter Hematoma Admitting Information Admitting Physician Requests: Observation Condition: Stable Richard Thao Jan 15, 2018 20:30
[2018-01-15 20:34] VITALS: RESP 16; O2SAT 99
[2018-01-15 20:37] LABS: AUTOMATED NEUTROPHIL # 2.4 TH/MM3 (1.8-7.7); BASOPHIL % 0.6 % (0.0-2.0); EOSINOPHIL % 0.6 % (0.0-4.0); HEMATOCRIT 41.8 % (35.0-46.0); HEMOGLOBIN 14.1 GM/DL (11.6-15.3); LYMPHOCYTE # 1.6 TH/MM3 (1.0-4.8); MEAN CELL VOLUME 89.5 FL (80.0-100.0); MEAN CORPUSCULAR HEMOGLOBIN 30.1 PG (27.0-34.0); MEAN CORPUSCULAR HGB CONC 33.7 % (32.0-36.0); MONO % 7.9 % (0.0-8.0); MONOCYTE # 0.4 TH/MM3 (0-0.9); NEUT % 54.9 % (16.0-70.0); PLATELET COUNT 62 TH/MM3 (150-450); RED BLOOD COUNT 4.67 MIL/MM3 (4.00-5.30); RED CELL DISTRIBUTION WIDTH 18.7 % (11.6-17.2); WHITE BLOOD COUNT 4.4 TH/MM3 (4.0-11.0)
--- NOTE | 2018-01-15 20:43 | RADRPT ---
EXAM DATE/TIME: 01/15/2018 20:23 [facility] COMPARISON: No previous studies available for comparison. INDICATIONS : Evaluate chest for trauma, seizure MEDICAL HISTORY : Seizures. SURGICAL HISTORY : Tubal ligation. ENCOUNTER: Initial ACUITY: 1 day PAIN SCORE: 0/10 LOCATION: chest FINDINGS: A single view of the chest demonstrates the lungs to be symmetrically aerated without evidence of mas s, infiltrate or effusion. The cardiomediastinal contours are unremarkable. Osseous structures are intact. CONCLUSION: Normal examination. Zenon Sifuentes MD on January 15, 2018 at 20:40 Board Certified Radiologist. This report was verified electronically.
[2018-01-15 20:50] LABS: PROTHROMBIN TIME - PATIENT 10.5 SEC (9.8-11.6)
[2018-01-15 21:02] LABS: BICARBONATE 26.8 MEQ/L (21.0-32.0); BLOOD UREA NITROGEN 7 MG/DL (7-18); CALCIUM 8.9 MG/DL (8.5-10.1); CHLORIDE 100 MEQ/L (98-107); CREATININE 0.81 MG/DL (0.50-1.00); GLOMERULAR FILTRATION RATE 94 ML/MIN (>89); GLUCOSE,RANDOM 126 MG/DL (74-106); SODIUM (NA) 136 MEQ/L (136-145); TARGET CELLS 2+ (NORMAL)
--- NOTE | 2018-01-15 21:23 | RADRPT ---
EXAM DATE/TIME: 01/15/2018 21:03 [facility] COMPARISON: CT BRAIN W/O CONTRAST, October 05, 2017, 16:28. INDICATIONS : Seizure. Fell hitting right side of head and face. RADIATION DOSE: 34.54 CTDIvol (mGy) MEDICAL HISTORY : Seizures. SURGICAL HISTORY : Tubal ligation. ENCOUNTER: Initial ACUITY: 1 day PAIN SCALE: 6/10 LOCATION: Right cranial TECHNIQUE: Multiple contiguous axial images were obtained of the head. Using automated exposure control and adj ustment of the mA and/or kV according to patient size, radiation dose was kept as low as reasonably a chievable to obtain optimal diagnostic quality images. DICOM format image data is available electro nically for review and comparison. FINDINGS: CEREBRUM: The ventricles are normal for age. No evidence of midline shift, mass lesion, hemorrhage or acute in farction. No extra-axial fluid collections are seen. POSTERIOR FOSSA: The cerebellum and brainstem are intact. The 4th ventricle is midline. The cerebellopontine angle i s unremarkable. EXTRACRANIAL: The visualized portion of the orbits is intact. SKULL: The calvaria is intact. No evidence of skull fracture. CONCLUSION: No acute disease. Zenon Sifuentes MD on January 15, 2018 at 21:20 Board Certified Radiologist. This report was verified electronically.
--- NOTE | 2018-01-15 21:24 | RADRPT ---
EXAM DATE/TIME: 01/15/2018 21:03 [facility] COMPARISON: No previous studies available for comparison. INDICATIONS : Seizure. Fell hitting right side of head and face. RADIATION DOSE: 19.98 CTDIvol (mGy) MEDICAL HISTORY : Seizures. SURGICAL HISTORY : Tubal ligation. ENCOUNTER: Initial ACUITY: 1 day PAIN SCALE: 6/10 LOCATION: neck TECHNIQUE: Volumetric scanning of the cervical spine was performed. Multiplanar reconstructions in the sagittal, coronal and oblique axial planes were performed. Using automated exposure control and adjustment o f the mA and/or kV according to patient size, radiation dose was kept as low as reasonably achievable to obtain optimal diagnostic quality images. DICOM format image data is available electronically f or review and comparison. FINDINGS: VERTEBRAE: Normal vertebral body height. ALIGNMENT: No evidence of subluxation. C2-C3: The bony spinal canal is normal in size. No evidence of disc bulge or herniation. The neural forami na are bilaterally patent. C3-C4: The bony spinal canal is normal in size. No evidence of disc bulge or herniation. The neural forami na are bilaterally patent. C4-C5: The bony spinal canal is normal in size. No evidence of disc bulge or herniation. The neural forami na are bilaterally patent. C5-C6: The bony spinal canal is normal in size. No evidence of disc bulge or herniation. The neural forami na are bilaterally patent. C6-C7: The bony spinal canal is normal in size. No evidence of disc bulge or herniation. The neural forami na are bilaterally patent. C7-T1: The bony spinal canal is normal in size. No evidence of disc bulge or herniation. The neural forami na are bilaterally patent. CONCLUSION: No acute disease. Zenon Sifuentes MD on January 15, 2018 at 21:21 Board Certified Radiologist. This report was verified electronically.
--- NOTE | 2018-01-15 21:26 | RADRPT ---
EXAM DATE/TIME: 01/15/2018 21:03 [facility] COMPARISON: CT FACIAL BONES W/O CONTRAST, January 20, 2015, 22:53. INDICATIONS : Seizure. Fell hitting right side of head and face. RADIATION DOSE: 63.12 CTDIvol (mGy) MEDICAL HISTORY : Seizures. SURGICAL HISTORY : Tubal ligation. ENCOUNTER: Initial ACUITY: 1 day PAIN SCORE: 6/10 LOCATION: Right facial TECHNIQUE: Volumetric scanning of the facial bones was performed. Using automated exposure control and adjustme nt of the mA and/or kV according to patient size, radiation dose was kept as low as reasonably achiev able to obtain optimal diagnostic quality images. DICOM format image data is available electronicall y for review and comparison. FINDINGS: ORBITS: The orbital and infraorbital osseous structures are intact. The retroconal structures have a normal configuration. No radiopaque foreign bodies are seen. NASAL BONE: The nasal bone and maxillary spine are intact ZYGOMATIC ARCHES: Symmetric without evidence of fracture. SINUSES: Minimal mucosal thickening in the maxillary sinuses. NASAL CAVITY: The nasal septum is intact and midline. The lacrimal ducts are intact. SOFT TISSUES: No radiopaque foreign bodies seen. No soft-tissue swelling is seen. INTRACRANIAL: No intracranial air seen. CRIBIFORM PLATE: Grossly intact. CONCLUSION: No fractures are seen. Zenon Sifuentes MD on January 15, 2018 at 21:23 Board Certified Radiologist. This report was verified electronically.
[2018-01-15] MEDS ORDERED: SODIUM CHLOR 0.9% 1000 ML INJ 1,000 ML IV ONE (21:45)
[2018-01-15] MEDS ORDERED: FLUMAZENIL 0.5 MG/5 ML VIAL IV PUSH PRN (22:45)
[2018-01-15] MEDS ORDERED: cloNIDine HCL 0.1 MG TAB PO PRN (22:45)
[2018-01-15] MEDS ORDERED: SODIUM CHLORIDE 0.9% FLUSH 10 ML FLUSH IV FLUSH PRN (22:45)
[2018-01-15] MEDS ORDERED: LORazepam 1 MG TAB PO PRN (22:45)
[2018-01-15] MEDS ORDERED: LORazepam 2 MG TAB PO PRN (22:45)
[2018-01-15] MEDS ORDERED: LORazepam 2 MG/ML VIAL IV PUSH PRN ×3 (22:45)
[2018-01-15] MEDS ORDERED: ONDANSETRON HCL 4 MG/2 ML VIAL IV PUSH PRN (22:45)
[2018-01-15 23:01] LABS: BILIRUBIN, URINE NEG (NEG); BLOOD, URINE TRACE (NEG); GLUCOSE,URINE NEG (NEG); KETONE, URINE TRACE mg/dL (NEG); MUCUS URINE FEW /lpf (OCC); NITRITE,URINE NEG (NEG); PH, URINE 6.5 (5.0-8.5); SQUAMOUS EPITHELIAL CELL URINE 3 /hpf (0-5); URINE COLOR YELLOW (YELLW/STRAW); URINE LEUKOCYTE ESTERASE TRACE (NEG)
[2018-01-15 23:15] VITALS: BP 118/82; PULSE 91; RESP 16; O2SAT 97
[2018-01-16] MEDS ORDERED: THIAMINE INJ 100 MG in SODIUM CHLORIDE 0.9% INJ 100 ML IV SCH ×2
--- NOTE | 2018-01-16 00:27 | HHI.HP ---
HPI Service [facility] Primary Care Physician No Primary Care Physician Admission Diagnosis Alcohol withdrawal seizures Diagnoses: Travel History International Travel<30 Days: No Contact w/Intl Traveler <30 Da: No Traveled to Known Affected Are: No History of Present Illness 42-year-old female with a past medical history significant for alcohol abuse and iron deficiency anemia presents the emergency department after having a seizure. The patient reports she has no memory of the event however her partner found her face down on the floor upon returning to their bedroom. The patient has a history of alcohol withdrawal seizures and states that she has similar episodes every time she quits drinking. She reports drinking between 6- 8 tall beers daily and only had one today as she was trying to cut down. She states that she must have fallen on her face she has a hematoma near the right scientology and multiple ecchymoses on the left side of the tongue and lower lip. Patient denies any chest pain or shortness of breath. Complains of body aches and tremulousness. Denies any nausea/vomiting/diarrhea. No abdominal pain. Review of Systems Except as stated in HPI: all other systems reviewed are Neg Past Family Social History Past Medical History Alcohol abuse Iron deficiency anemia Past Surgical History Bilateral tubal ligation Reported Medications Reported Meds & Active Scripts Active Allergies: Coded Allergies: No Known Allergies (Verified Adverse Reaction, Unknown, 01/15/18) Family History Father with diabetes mellitus Social History Drinks approximately 6-8 "tall" beers daily. Denies tobacco or illicit drugs. Physical Exam Vital Signs Vital Signs Date Time Temp Pulse Resp B/P (MAP) Pulse Ox O2 Delivery O2 Flow Rate FiO2 01/16/18 00:16 01/15/18 23:15 91 16 118/82 (94) 97 Room Air 01/15/18 20:34 16 99 Room Air 01/15/18 19:51 98.5 98 18 137/84 (101) 99 Physical Exam GENERAL: Thin, female sitting up in bed. Tremulous SKIN: No rashes, ecchymoses or lesions. Cool and dry. Patient with multiple ecchymoses on her tongue and left lower lip. HEAD: Hematoma on right scientology. Tender to palpation. EYES: Pupils equal round and reactive. Extraocular motions intact. No scleral icterus. No injection or drainage. ENT: Nose without bleeding, purulent drainage or septal hematoma. Throat without erythema, tonsillar hypertrophy or exudate. Uvula midline. Airway patent. NECK: Trachea midline. No JVD or lymphadenopathy. Supple, nontender, no meningeal signs. CARDIOVASCULAR: Regular rate and rhythm without murmurs, gallops, or rubs. RESPIRATORY: Clear to auscultation. Breath sounds equal bilaterally. No wheezes , rales, or rhonchi. GASTROINTESTINAL: Abdomen soft, non-tender, nondistended. No hepato-splenomegaly , or palpable masses. No guarding. MUSCULOSKELETAL: Extremities without clubbing, cyanosis, or edema. No joint tenderness, effusion, or edema noted. No calf tenderness. NEUROLOGICAL: Awake and alert. Cranial nerves II through XII intact. Motor and sensory grossly within normal limits. Normal speech. Laboratory Laboratory Tests Test 01/15/18 20:25 01/15/18 22:46 White Blood Count 4.4 Red Blood Count 4.67 Hemoglobin 14.1 Hematocrit 41.8 Mean Corpuscular Volume 89.5 Mean Corpuscular Hemoglobin 30.1 Mean Corpuscular Hemoglobin Concent 33.7 Red Cell Distribution Width 18.7 Platelet Count 62 Mean Platelet Volume 9.0 Neutrophils (%) (Auto) 54.9 Lymphocytes (%) (Auto) 36.0 Monocytes (%) (Auto) 7.9 Eosinophils (%) (Auto) 0.6 Basophils (%) (Auto) 0.6 Neutrophils # (Auto) 2.4 Lymphocytes # (Auto) 1.6 Monocytes # (Auto) 0.4 Eosinophils # (Auto) 0.0 Basophils # (Auto) 0.0 CBC Comment AUTO DIFF Differential Comment AUTO DIFF CONFIRMED Platelet Estimate LOW Platelet Morphology Comment ENLARGED Target Cells 2+ Prothrombin Time 10.5 Prothromb Time International Ratio 1.0 Activated Partial Thromboplast Time 25.2 Blood Urea Nitrogen 7 Creatinine 0.81 Random Glucose 126 Calcium Level 8.9 Sodium Level 136 Potassium Level 4.1 Chloride Level 100 Carbon Dioxide Level 26.8 Anion Gap 9 Estimat Glomerular Filtration Rate 94 Ethyl Alcohol Level LESS THAN 3 Urine Color YELLOW Urine Turbidity CLEAR Urine pH 6.5 Urine Specific [place] 1.012 Urine Protein 100 Urine Glucose (UA) NEG Urine Ketones TRACE Urine Occult Blood TRACE Urine Nitrite NEG Urine Bilirubin NEG Urine Urobilinogen 2.0 Urine Leukocyte Esterase TRACE Urine RBC 2 Urine WBC 1 Urine Squamous Epithelial Cells 3 Urine Mucus FEW Microscopic Urinalysis Comment CULT NOT INDICATED Urine Opiates Screen NEG Urine Barbiturates Screen NEG Urine Amphetamines Screen NEG Urine Benzodiazepines Screen NEG Urine Cocaine Screen NEG Urine Cannabinoids Screen NEG Result Diagram: 01/15/18202401/15/182024 Caprini VTE Risk Assessment Caprini VTE Risk Assessment: No/Low Risk (score <= 1) Caprini Risk Assessment Model Point Value = 1 Point Value = 2 Point Value = 3 Point Value = 5 Age 41-60 Minor surgery BMI > 25 kg/m2 Swollen legs Varicose veins or History of unexplained or recurrent spontaneous Oral contraceptives or hormone replacement Sepsis (< 1 month) Serious lung disease, including pneumonia (< 1 month) Abnormal pulmonary function Acute myocardial infarction Congestive heart failure (< 1 month) History of inflammatory bowel disease Medical patient at bed rest Age 61-74 Arthroscopic surgery Major open surgery (> 45 min) Laparoscopic surgery (> 45 min) Malignancy Confined to bed (> 72 hours) Immobilizing plaster cast Central venous access Age >= 75 History of VTE Family history of VTE Factor V Leiden Prothrombin [id number] Lupus anticoagulant Anticardiolipin antibodies Elevated serum homocysteine Heparin-induced thrombocytopenia Other congenital or acquired thrombophilia Stroke (< 1 month) Elective arthroplasty Hip, pelvis, or leg fracture Acute spinal cord injury (< 1 month) Prophylaxis Regimen Total Risk Factor Score Risk Level Prophylaxis Regimen 0-1 Low Early ambulation 2 Moderate Order ONE of the following: *Sequential Compression Device (SCD) *Heparin 5000 units SQ BID 3-4 Higher Order ONE of the following medications: *Heparin 5000 units SQ TID *Enoxaparin/Lovenox 40 mg SQ daily (WT < 150 kg, CrCl > 30 mL/min) *Enoxaparin/Lovenox 30 mg SQ daily (WT < 150 kg, CrCl > 10-29 mL/min) *Enoxaparin/Lovenox 30 mg SQ BID (WT < 150 kg, CrCl > 30 mL/min) AND/OR *Sequential Compression Device (SCD) 5 or more Highest Order ONE of the following medications: *Heparin 5000 units SQ TID (Preferred with Epidurals) *Enoxaparin/Lovenox 40 mg SQ daily (WT < 150 kg, CrCl > 30 mL/min) *Enoxaparin/Lovenox 30 mg SQ daily (WT < 150 kg, CrCl > 10-29 mL/min) *Enoxaparin/Lovenox 30 mg SQ BID (WT < 150 kg, CrCl > 30 mL/min) AND *Sequential Compression Device (SCD) Assessment and Plan Assessment and Plan Assessment/plan: 1. Alcohol withdrawal seizure Patient with history of multiple alcohol withdrawal seizures [facility] protocol Ativan prn Seizure precautions 2. Temporal hematoma Head CT negative for acute process Maxillofacial CT and cervical spine also negative Morphine for pain 3. Thrombocytopenia Platelet count 62, which is baseline Monitor CBC 4. Alcohol abuse Plan as above Cessation counseling provided Thiamine/folate/multivitamin Monitor for signs of withdrawal FEN Regular diet Electrolytes: Monitor and replete prn Ambulation Physician Certification 2 Midnight Certification Type: Admission for Inpatient Services Order for Inpatient Services The services are ordered in accordance with Medicare regulations or non- Medicare payer requirements, as applicable. In the case of services not specified as inpatient-only, they are appropriately provided as inpatient services in accordance with the 2-midnight benchmark. Estimated LOS (days): 2 2 days is the estimated time the patient will need to remain in the hospital, assuming treatment plan goals are met and no additional complications. Post-Hospital Plan: Not yet determined Michaela Naranjo MD Jan 16, 2018 00:27
[2018-01-16] MEDS ORDERED: LORazepam 2 MG/ML VIAL IV PUSH PRN (00:30)
[2018-01-16] MEDS: diphenhydrAMINE HCL 25 MG CAP PO PRN ×2 (01:13→13:40)
[2018-01-16 05:18] VITALS: BP 114/78; PULSE 98; RESP 18; TEMP 98.4; O2SAT 97
[2018-01-16 06:30] LABS: AUTOMATED NEUTROPHIL # 3.4 TH/MM3 (1.8-7.7); BASOPHIL % 0.4 % (0.0-2.0); HEMOGLOBIN 12.7 GM/DL (11.6-15.3); LYMPHOCYTE # 1.1 TH/MM3 (1.0-4.8); MEAN CELL VOLUME 88.9 FL (80.0-100.0); MEAN CORPUSCULAR HEMOGLOBIN 29.7 PG (27.0-34.0); MEAN CORPUSCULAR HGB CONC 33.4 % (32.0-36.0); MEAN PLATELET VOLUME 9.2 FL (7.0-11.0); MONO % 8.4 % (0.0-8.0); MONOCYTE # 0.4 TH/MM3 (0-0.9); NEUT % 68.2 % (16.0-70.0); PLATELET COUNT 58 TH/MM3 (150-450); RED BLOOD COUNT 4.28 MIL/MM3 (4.00-5.30); RED CELL DISTRIBUTION WIDTH 19.1 % (11.6-17.2)
[2018-01-16 06:57] LABS: ALBUMIN 2.9 GM/DL (3.4-5.0); BICARBONATE 25.5 MEQ/L (21.0-32.0); BLOOD UREA NITROGEN 10 MG/DL (7-18); CALCIUM 8.3 MG/DL (8.5-10.1); CHLORIDE 104 MEQ/L (98-107); CREATININE 0.55 MG/DL (0.50-1.00); GLOMERULAR FILTRATION RATE 147 ML/MIN (>89); GLUCOSE,RANDOM 100 MG/DL (74-106); SODIUM (NA) 137 MEQ/L (136-145)
[2018-01-16 06:59] LABS: ALT (GPT) 81 U/L (10-53); AST (GOT) 145 U/L (15-37)
[2018-01-16 07:00] LABS: ALKALINE PHOSPHATASE 139 U/L (45-117); TOTAL BILIRUBIN ADULT 0.7 MG/DL (0.2-1.0); TOTAL PROTEIN 7.1 GM/DL (6.4-8.2)
[2018-01-16 07:40] VITALS: BP 113/77; PULSE 103; RESP 20; TEMP 99.1; O2SAT 96
[2018-01-16 08:10] LABS: TARGET CELLS 1+ (NORMAL)
[2018-01-16] MEDS: SODIUM CHLORIDE 0.9% FLUSH 10 ML FLUSH IV FLUSH SCH ×2 (08:47→21:19)
--- NOTE | 2018-01-16 08:49 | EKG ---
Date Performed: 01/15/2018 Time Performed: 20:47:17 PTAGE: 42 years EKG: Sinus rhythm LOW QRS VOLTAGE IN PRECORDIAL LEADS NONSPECIFIC T-WAVE ABNORMALITY ABNORMAL ECG PREVIOUS TRACING : 10/05/2017 16.14 Since the previous tracing, no significant change noted DOCTOR: Wilbert Bruno Interpretating Date/Time 01/16/2018 08:48:03
[2018-01-16 08:51] VITALS: PULSE 93
[2018-01-16] MEDS ORDERED: PANTOPRAZOLE SOD 40 MG DELAYED RELEASE TAB PO SCH (09:00)
[2018-01-16] MEDS ORDERED: FOLIC ACID 1 MG TAB PO SCH (09:00)
[2018-01-16] MEDS ORDERED: MULTIVITAMIN TAB PO SCH (09:00)
--- NOTE | 2018-01-16 10:13 | HHI.PR ---
Subjective Remarks Follow-up alcohol withdrawal, seizure. The patient states that she feels much better. No further seizure activity reported. She does report some discomfort in the left ear as well as postnasal drainage. Objective Vitals Vital Signs Date Time Temp Pulse Resp B/P (MAP) Pulse Ox O2 Delivery O2 Flow Rate FiO2 01/16/18 08:51 93 01/16/18 07:40 99.1 103 20 113/77 (89) 96 01/16/18 05:18 98.4 98 18 114/78 (90) 97 01/16/18 00:16 01/15/18 23:15 91 16 118/82 (94) 97 Room Air 01/15/18 20:34 16 99 Room Air 01/15/18 19:51 98.5 98 18 137/84 (101) 99 Result Diagram: 01/16/18 0543 01/16/18 0543 Imaging Last Impressions Maxillofacial CT 01/15/18 0000 Signed Impressions: Service Date/Time: Monday, January 15, 2018 21:03 - CONCLUSION: No fractures are seen. Zenon Sifuentes MD Head CT 01/15/18 0000 Signed Impressions: Service Date/Time: Monday, January 15, 2018 21:03 - CONCLUSION: No acute disease. Zenon Sifuentes MD Chest X-Ray 01/15/18 0000 Signed Impressions: Service Date/Time: Monday, January 15, 2018 20:23 - CONCLUSION: Normal examination. Zenon Sifuentes MD Cervical Spine CT 01/15/18 0000 Signed Impressions: Service Date/Time: Monday, January 15, 2018 21:03 - CONCLUSION: No acute disease. Zenon Sifuentes MD Objective Remarks Patient examined in the presence of the nurse. General: No acute distress. Tremulous. Heart: Regular rate and rhythm. No murmur. Lungs: Clear to auscultation bilaterally. No wheezes, rales, or rhonchi. Breathing is nonlabored. Abdomen: Soft, nontender, nondistended. Extremities: No lower extremity edema. Psych: Alert and oriented. Unable to examine patient's ears adequately as no otoscope is available at the time of my examination. Procedures None Urinary Catheter: No Vascular Central Line Catheter: No A/P Assessment and Plan 1. Alcohol withdrawal seizure: Continue seizure precautions. CIWA protocol. 2. Temporal hematoma: Secondary to fall. Head CT is negative for acute process. Maxillofacial CT and cervical spine CT also negative. 3. Thrombocytopenia: Platelet count reportedly at patient's baseline. Monitor labs. Likely secondary to chronic alcohol abuse. 4. Alcohol abuse: The patient was counseled to quit. She states "I am done with that". Continue thiamine, folate, multivitamin. 5. Elevated LFTs: Secondary to alcohol abuse. Monitor labs. 6. DVT prophylaxis: SCDs. Discharge Planning Possible discharge home next 1-2 days pending further clinical improvement. Thaddeus James MD Jan 16, 2018 10:13
[2018-01-16 10:57] VITALS: BP 105/71; PULSE 90; RESP 20; TEMP 98.6; O2SAT 97
[2018-01-16 14:58] VITALS: BP 92/64; PULSE 101; RESP 20; TEMP 97.6; O2SAT 96
[2018-01-16] MEDS: LORazepam 2 MG/ML VIAL IV PUSH PRN ×2 (18:29→19:51)
[2018-01-16] MEDS: HALOPERIDOL LACTATE 5 MG/ML AMP IM PRN ×2 (21:19→22:09)
== END 2018-01-16 22:44 | disposition left against medical advice (07) | DRG 894 ==
LOC: NEPE 19:42 → NEDA 22:18 → OBSVTOIN 01-16 00:17 → NEPGCP 01-16 00:21
PROVIDERS: ADMIT Family Medicine; ATTEND Family Medicine
DX: F10.230 Alcohol dependence with withdrawal, uncomplicated (principal); D69.6 Thrombocytopenia, unspecified; R56.9 Unspecified convulsions; S00.83XA Contusion of other part of head, initial encounter; S00.531A Contusion of lip, initial encounter; K21.9 Gastro-esophageal reflux disease without esophagitis; R79.89 Other specified abnormal findings of blood chemistry; M19.90 Unspecified osteoarthritis, unspecified site; W19.XXXA Unspecified fall, initial encounter
CPT/HCPCS: 70450; 70486; 71045; 72125; 80048; 80053; 80307; 81001; 82948; 85025; 85610; 85730; 93005; 96361; 96374; G0378; J1630; J2060; J3411; J7030